=== PATIENT | female | born 1990 | race Caucasian/White ===

== ENCOUNTER 2016-07-14 19:58 | Emergency (ER) | payer MEDICAID ==
[~2016-07-14] VITALS: Ht 170.2 cm; Wt 70.5 kg
[~2016-07-14 19:58] MED LIST: NORCO 325 MG-51 TAB PO; PRENATAL VITAMI1 TAB PO
[2016-07-14 20:00] VITALS: BP 152/83; TEMP 99.4
[2016-07-14 20:28] LABS: BASO % 0.4 % (0.0-2.0); EOS # 0.1 (0.0-0.7); EOS % 0.9 % (0-4.0); GRAN # 4.7 (1.4-6.5); GRAN % 60.5 % (42.2-75.2); HEMOGLOBIN 12.2 g/dl (12.5-16.0); LYMPH # 2.3 (1.2-3.4); LYMPH % 30.1 % (20.0-51.0); MEAN CELL VOLUME 92 fl (80.0-100.0); MEAN CORPUSCULAR HEMOGLOBIN 32 pg (27.0-31.0); MEAN CORPUSCULAR HGB CONC 34 g/dl (33.0-37.0); MEAN PLATELET VOLUME 11.6 fl (7.4-10.4); MONO # 0.6 (0.1-0.6); MONO % 7.8 % (1.7-9.3); PLATELET COUNT 151 K/mm3 (130-400); RED BLOOD COUNT 3.87 M/mm3 (4.10-5.30); REDCELL DISTRIBUTION WIDTH-CV 11.7 % (11.5-14.5); WHITE BLOOD COUNT 7.7 K/mm3 (4.8-10.8)
[2016-07-14 20:30] LABS: HEMATOCRIT 35.5 % (37.0-47.0)
[2016-07-14 22:33] VITALS: PULSE 76
[2016-07-15 05:36] LABS: CHLAMYDIA/TRACH by PCR Female NOT DETECTED; NEISSERIA GON by PCR Female NOT DETECTED
== END 2016-07-14 22:33 | disposition home or self-care (01) ==
LOC: COL.ER 19:58
PROVIDERS: Emergency Medicine; Physician Assistant
DX: O20.9 Hemorrhage in early pregnancy, unspecified (principal); Z3A.01 Less than 8 weeks gestation of pregnancy; O99.331 Smoking (tobacco) complicating pregnancy, first trimester; F17.219 Nicotine dependence, cigarettes, with unspecified nicotine-induced disorders
CPT/HCPCS: J2791

== ENCOUNTER 2018-11-22 02:21 | Emergency (ER) | payer MEDICAID ==
[~2018-11-22] VITALS: Ht 167.6 cm; Wt 63.6 kg
[~2018-11-22 02:21] MED LIST changes: +AMOXICILLIN 8751 TAB PO
[2018-11-22 02:27] VITALS: BP 170/81; TEMP 97
[2018-11-22] MEDS ORDERED: NORCO 325 MG-51 TAB PO (03:07)
[2018-11-22 03:17] VITALS: PULSE 77
== END 2018-11-22 03:18 | disposition home or self-care (01) ==
LOC: COL.ER 02:21
DX: K08.89 Other specified disorders of teeth and supporting structures (principal); Z90.710 Acquired absence of both cervix and uterus; F17.210 Nicotine dependence, cigarettes, uncomplicated

== ENCOUNTER 2021-10-19 23:01 | Emergency (ER) | payer MEDICAID ==
[~2021-10-19] VITALS: Ht 167.6 cm; Wt 68.2 kg
[2021-10-19 23:07] VITALS: TEMP 97.4
[2021-10-20] MEDS ORDERED: ELIMITE TOP (00:04)
[2021-10-20] MEDS ORDERED: PREDNISONE20 MG PO (00:05)
[2021-10-20 00:50] VITALS: BP 103/74; PULSE 74
== END 2021-10-20 00:50 | disposition home or self-care (01) ==
LOC: COL.ER 23:01
DX: B86 Scabies (principal)
CPT/HCPCS: J7512

== ENCOUNTER → 2022-05-31 | Outpatient (CLI) | payer MEDICAID ==
[~2022-05-31] MED LIST changes: +ELIMITE TOP; +FLEXERIL 1010 MG/TAB PO; +MOTRIN 200200 MG/TAB PO; +PREDNISONE20 MG PO; +TYLENOL 500MG500 MG PO
== END ==
LOC: COL.RAD 11:56
DX: R10.9 Unspecified abdominal pain (principal)